=== PATIENT | female | born 1990 | race Caucasian/White ===

== ENCOUNTER 2017-10-07 19:10 | Emergency (ER) | payer MEDICAID, OTHER ==
[~2017-10-07] VITALS: Ht 165.1 cm; Wt 57.4 kg
[2017-10-07 19:38] VITALS: BP 121/85
[2017-10-07 21:19] LABS: BASOPHILS # (AUTO) 0.1 /CMM (0.0-0.2); BASOPHILS % (AUTO) 0.8 % (0.0-2.0); EOSINOPHILS % (AUTO) 0.8 % (0.0-6.0); HEMATOCRIT 37 % (33-45); HEMOGLOBIN 12.7 g/dL (11.5-14.8); LYMPHOCYTES # (AUTO) 2.8 /CMM (0.8-4.8); LYMPHOCYTES % (AUTO) 27.9 % (20.0-44.0); MEAN CORPUSCULAR HGB CONC 35 g/dl (31.0-36.0); MEAN CORPUSCULAR VOLUME 81 fL (82-100); MONOCYTES # (AUTO) 0.4 /CMM (0.1-1.30); MONOCYTES % (AUTO) 4.5 % (2.0-12.0); NEUTROPHILS # (AUTO) 6.5 /CMM (1.8-8.9); PLATELET COUNT (AUTO) 283 /CMM (150-450); RDW COEFFICIENT OF VARIATION 11.6 (11.5-15.0); RED BLOOD CELL COUNT(AUTO) 4.52 MIL/uL (4.0-5.2); WHITE BLOOD COUNT (AUTO) 9.9 K/uL (4.3-11.0)
[2017-10-07 21:31] LABS: CALCIUM, SERUM 8.8 mg/dL (8.5-10.1); CREATININE 0.9 mg/dL (0.6-1.3); POTASSIUM 3.6 mmol/L (3.5-5.1)
[2017-10-07 21:31] LABS: APPEARANCE,URINE Clear (CLEAR); BILIRUBIN,URINE Negative (NEGATIVE); BLOOD, URINE Negative Ery/uL (NEGATIVE); COLOR,URINE Yellow (YELLOW); KETONES,URINE Negative (NEGATIVE); LEUKOCYTE ESTERASE ,URINE Negative (NEGATIVE); NITRITE, URINE Negative (NEGATIVE); PH,URINE 7.5 (5.0-8.0); PROTEIN,URINE Negative (NEGATIVE); UGLUCOSE Negative (NEGATIVE)
[2017-10-07 21:46] LABS: ALBUMIN 3.5 g/dL (3.4-5.0); BILIRUBIN,DIRECT 0.1 mg/dL (0.0-0.2); BILIRUBIN,TOTAL 0.3 mg/dL (0.2-1.0); TOTAL PROTEIN, SERUM 7.5 g/dL (6.4-8.2)
== END 2017-10-07 22:44 | disposition home or self-care (01) ==
LOC: ER 19:12
DX: K59.00 Constipation, unspecified (principal); Z98.51 Tubal ligation status; Z98.890 Other specified postprocedural states
CPT/HCPCS: 36415; 80048; 80076; 81001; 83690; 84703; 85025; 99284; A4606; Z7610; 81000-TC

== ENCOUNTER 2019-03-23 19:43 | Emergency (ER) | payer MEDICAID ==
[~2019-03-23] VITALS: Ht 167.6 cm; Wt 56.3 kg
--- NOTE | 2019-03-23 19:58 | NUR ---
BIB EMS C/O ABDMONIAL, LOW BACK PAIN WITH FREQUENCY PAIN AND BURNING UPON URINATION X3 DAYS. TO ER BED 12, HOOKED TO MONITOR, CHANGED TO [facility], AWAITING MD PHILIP.
--- NOTE | 2019-03-23 20:10 | NUR ---
MATIAS HINSON AT BEDSIDE
[2019-03-23] MEDS ORDERED: KETOROLAC TROMETHAMINE INJ 30 MG/ML VIAL ONE (20:29)
[2019-03-23 20:30] LABS: BILIRUBIN,URINE Negative (NEGATIVE); BLOOD, URINE Moderate Ery/uL (NEGATIVE); COLOR,URINE Yellow (YELLOW); KETONES,URINE Negative (NEGATIVE); LEUKOCYTE ESTERASE ,URINE Negative (NEGATIVE); NITRITE, URINE Negative (NEGATIVE); PH,URINE 6.5 (5.0-8.0); PROTEIN,URINE Negative (NEGATIVE); UGLUCOSE Negative (NEGATIVE); UROBILINOGEN,URINE 0.2 EU/dL (0.2)
[2019-03-23] MEDS ORDERED: KETOROLAC TROMETHAMINE INJ 30 MG/ML VIAL IV ONE (20:30)
[2019-03-23] MEDS ORDERED: IV NS 0.9% 1,000 ML BAG IV ONE (20:30)
[2019-03-23 20:31] LABS: APPEARANCE,URINE HAZY (CLEAR)
[2019-03-23 20:39] LABS: BACTERIA,URINE Many /HPF (None Seen); SQUAMOUS EPITHELIAL CELL,UR Few /HPF (None Seen)
[2019-03-23] MEDS ORDERED: CEPHALEXIN MONOHYDRATE 500 MG CAPSULE PO ONE ×2 (22:00→22:21)
[2019-03-23] MEDS ORDERED: PHENAZOPYRIDINE HCL 200 MG TABLET PO ONE (22:00)
[2019-03-23] MEDS ORDERED: PHENAZOPYRIDINE HCL 200 MG TABLET ONE (22:21)
--- NOTE | 2019-03-23 22:28 | NUR ---
IV removed. Catheter intact and site benign. Pressure and 4x4 applied to site. No bleeding noted.Patient discharged to home in stable condition. Written and verbal after care instructions given. Patient verbalizes understanding of instruction.
[2019-03-23 22:32] VITALS: BP 132/71
--- NOTE | 2019-03-23 22:33 | NUR ---
PATIENT PROVIDED W TAP CARD REQUESTED, PER PATIENT "I HAVE NO MONEY TO GO HOME"
== END 2019-03-23 22:33 | disposition home or self-care (01) ==
LOC: ER 19:44
DX: N39.0 Urinary tract infection, site not specified (principal); N83.209 Unspecified ovarian cyst, unspecified side; K52.9 Noninfective gastroenteritis and colitis, unspecified; K59.00 Constipation, unspecified; K57.90 Diverticulosis of intestine, part unspecified, without perforation or abscess without bleeding; F42.8 Other obsessive-compulsive disorder; Z98.890 Other specified postprocedural states; Z60.2 Problems related to living alone
CPT/HCPCS: 71045; 74176; 81001; 84703; 87086; 96361; 96374; 99284; J1885; J7030; 81000-TC

== ENCOUNTER 2019-03-31 17:29 | Emergency (ER) | payer MEDICAID ==
[~2019-03-31] VITALS: Ht 165.1 cm; Wt 55.8 kg
[2019-03-31 19:09] VITALS: BP 115/65
--- NOTE | 2019-03-31 19:09 | NUR ---
Patient discharged to home in stable condition. Written and verbal after care instructions given. Patient verbalizes understanding of instruction.
== END 2019-03-31 19:09 | disposition home or self-care (01) ==
LOC: ER 17:29
DX: L02.31 Cutaneous abscess of buttock (principal); F42.8 Other obsessive-compulsive disorder; Z98.890 Other specified postprocedural states; Z60.2 Problems related to living alone

== ENCOUNTER 2020-06-01 11:49 | Emergency (ER) | payer MEDICAID ==
[~2020-06-01] VITALS: Ht 160 cm; Wt 65.8 kg
[2020-06-01 12:28] LABS: BILIRUBIN,URINE NEGATIVE (NEGATIVE); BLOOD, URINE NEGATIVE Ery/uL (NEGATIVE); COLOR,URINE YELLOW (YELLOW); LEUKOCYTE ESTERASE ,URINE NEGATIVE (NEGATIVE); NITRITE, URINE NEGATIVE (NEGATIVE); PROTEIN,URINE NEGATIVE (NEGATIVE); UGLUCOSE NEGATIVE (NEGATIVE); UROBILINOGEN,URINE 0.2 EU/dL (0.2)
--- NOTE | 2020-06-01 13:00 | NUR ---
pt bib self c/o dysuria, burning sensation, and noted bumps around vaginal area x 3 mos. vs checked. evaluated by dr. caicedo be bedside with primary rn
--- NOTE | 2020-06-01 13:05 | NUR ---
urine collected sent to lab
[2020-06-01] MEDS ORDERED: AZITHROMYCIN 250 MG TABLET PO ONE (14:30)
[2020-06-01] MEDS ORDERED: CEFTRIAXONE 500 MG VIAL IM ONE (14:30)
[2020-06-01] MEDS ORDERED: CEFTRIAXONE 500 MG VIAL ONE (14:33)
[2020-06-01] MEDS ORDERED: LIDOCAINE /MPF 1% VIAL 5 ML VIAL ONE (14:33)
[2020-06-01] MEDS ORDERED: AZITHROMYCIN 250 MG TABLET ONE (14:34)
[2020-06-01 14:47] VITALS: BP 118/90
--- NOTE | 2020-06-01 14:48 | NUR ---
Patient discharged to home in stable condition. Written and verbal after care instructions given. Patient verbalizes understanding of instruction.
== END 2020-06-01 14:48 | disposition home or self-care (01) ==
LOC: ER 11:54
DX: L73.9 Follicular disorder, unspecified (principal); F42.9 Obsessive-compulsive disorder, unspecified; Z98.890 Other specified postprocedural states; Z60.2 Problems related to living alone
CPT/HCPCS: 81003; 96372; 99283; J0696; J3490

== ENCOUNTER 2021-01-25 14:29 | Emergency (ER) | payer MEDICAID ==
[~2021-01-25] VITALS: Ht 162.6 cm; Wt 63.5 kg
--- NOTE | 2021-01-25 14:52 | NUR ---
The patient [id number], from home, c/o vaginal bleeding on and off x 1 year. Noted perineal area redness, moist with foul odor. Patient c/o itching in perineal area. Will continue to monitor the patient.
[2021-01-25] MEDS ORDERED: FLUCONAZOLE (100 MG) 100 MG TABLET ONE (14:55)
[2021-01-25] MEDS ORDERED: HYDROCODONE/APAP 5/325MG TABLET ONE (14:55)
[2021-01-25] MEDS ORDERED: CEPHALEXIN MONOHYDRATE 500 MG CAPSULE PO ONE ×2 (14:55→15:00)
[2021-01-25] MEDS ORDERED: CEPH500C2 PO (14:56)
[2021-01-25] MEDS ORDERED: HYDR-4303 PO (14:56)
[2021-01-25] MEDS ORDERED: FLUC200T PO (14:56)
[2021-01-25] MEDS ORDERED: HYDROCODONE/APAP 5/325MG TABLET PO ONE (15:00)
[2021-01-25] MEDS ORDERED: FLUCONAZOLE (100 MG) 100 MG TABLET PO ONE (15:00)
[2021-01-25 15:18] VITALS: BP 109/66
--- NOTE | 2021-01-25 15:18 | NUR ---
Patient discharged to home in stable condition. Written and verbal after care instructions given. Patient verbalizes understanding of instruction.
== END 2021-01-25 15:18 | disposition home or self-care (01) ==
LOC: ER 14:32
DX: L30.9 Dermatitis, unspecified (principal); B37.3 Candidiasis of vulva and vagina; N76.2 Acute vulvitis; F42.9 Obsessive-compulsive disorder, unspecified; Z98.890 Other specified postprocedural states; Z60.2 Problems related to living alone

== ENCOUNTER 2021-04-19 15:19 | Emergency (ER) | payer MEDICAID ==
[~2021-04-19] VITALS: Ht 165.1 cm; Wt 72.6 kg
[~2021-04-19 15:19] MED LIST: CEPH500C2 PO; FLUC200T PO; HYDR-4303 PO
--- NOTE | 2021-04-19 15:33 | NUR ---
LT FLANK X 2-3 DAYS. DENIES CP, SOB, DIZZINESS, N/V AT THIS TIME. AWAITING EVAL BY ERMD. WILL CONT TO MONITOR.
--- NOTE | 2021-04-19 15:41 | NUR ---
MORAIMA WRIGHT AT FOR CEDRICK.
[2021-04-19] MEDS ORDERED: KETOROLAC TROMETHAMINE 15 MG/ML VIAL ONE (15:46)
[2021-04-19 15:59] LABS: BASOPHILS % (AUTO) 0.4 % (0.0-2.0); EOSINOPHILS % (AUTO) 0.6 % (0.0-6.0); HEMATOCRIT 42 % (33-45); HEMOGLOBIN 14.1 g/dL (11.5-14.8); LYMPHOCYTES # (AUTO) 2.3 K/uL (0.8-4.8); LYMPHOCYTES % (AUTO) 20.5 % (20.0-44.0); MEAN CORPUSCULAR HGB CONC 34 g/dl (31.0-36.0); MEAN CORPUSCULAR VOLUME 83 fL (82-100); MONOCYTES # (AUTO) 0.5 K/uL (0.1-1.30); NEUTROPHILS # (AUTO) 8.1 K/uL (1.8-8.9); NEUTROPHILS % (AUTO) 73.5 % (43.0-81.0); PLATELET COUNT (AUTO) 353 K/uL (150-450); RED BLOOD CELL COUNT(AUTO) 5.06 MIL/uL (4.0-5.2)
[2021-04-19 16:00] LABS: BILIRUBIN,URINE NEGATIVE (NEGATIVE); COLOR,URINE YELLOW (YELLOW); LEUKOCYTE ESTERASE ,URINE TRACE (NEGATIVE); NITRITE, URINE NEGATIVE (NEGATIVE); PH,URINE 6.5 (5.0-8.0); PROTEIN,URINE NEGATIVE (NEGATIVE); UGLUCOSE NEGATIVE (NEGATIVE); UROBILINOGEN,URINE 0.2 EU/dL (0.2)
[2021-04-19] MEDS ORDERED: KETOROLAC TROMETHAMINE INJ 30 MG/ML VIAL IV ONE (16:00)
[2021-04-19] MEDS ORDERED: IV NS 0.9% 1,000 ML BAG IV ONE (16:00)
[2021-04-19 16:09] LABS: CALCIUM, SERUM 8.9 mg/dL (8.5-10.1); CREATININE 0.7 mg/dL (0.6-1.3); POTASSIUM 3.8 mmol/L (3.5-5.1)
[2021-04-19 16:14] LABS: BACTERIA,URINE Rare /HPF (None Seen); RBC,URINE 0-2 /HPF (0-2); SQUAMOUS EPITHELIAL CELL,UR Moderate /HPF (None Seen); WBC,URINE 0-2 /HPF (0-3)
[2021-04-19] MEDS ORDERED: CIPR-262 PO (16:48)
[2021-04-19 17:06] VITALS: BP 127/76
--- NOTE | 2021-04-19 17:06 | NUR ---
Patient discharged to home in stable condition. Written and verbal after care instructions given. Patient verbalizes understanding of instruction. IV removed. Catheter intact and site benign. Pressure and 4x4 applied to site. No bleeding noted.
== END 2021-04-19 17:07 | disposition home or self-care (01) ==
LOC: ER 15:26
DX: N12 Tubulo-interstitial nephritis, not specified as acute or chronic (principal); Z98.51 Tubal ligation status; Z98.890 Other specified postprocedural states; Z60.2 Problems related to living alone; Z79.899 Other long term (current) drug therapy
CPT/HCPCS: 36415; 80048; 81001; 83690; 84703; 85025; 96361; 96374; 99283; J1885; J7030

== ENCOUNTER 2022-05-18 20:41 | Emergency (ER) | payer MEDICAID ==
[~2022-05-18] VITALS: Ht 162.6 cm; Wt 63.5 kg
[~2022-05-18 20:41] MED LIST changes: +CIPR-262 PO
--- NOTE | 2022-05-18 20:45 | NUR ---
TO ER BED 2. [id number] FROM HOME C/O LOWER BACK AND ABD PAIN X 2 DAYS W/ BURNING AND BLEEDING WHEN URINATING. PT IS ALERT AND ORIENTED. RR EVEN AND NON LABORED. CONNECTED TO MONITOR. AWAITING MD PHILIP
--- NOTE | 2022-05-18 20:56 | NUR ---
URINE SAMPLE COLLECTED
[2022-05-18 21:29] LABS: BILIRUBIN,URINE NEGATIVE (NEGATIVE); COLOR,URINE YELLOW (YELLOW); LEUKOCYTE ESTERASE ,URINE NEGATIVE (NEGATIVE); NITRITE, URINE NEGATIVE (NEGATIVE); PROTEIN,URINE NEGATIVE (NEGATIVE); UGLUCOSE NEGATIVE (NEGATIVE); UROBILINOGEN,URINE 0.2 EU/dL (0.2)
[2022-05-18 21:37] LABS: BACTERIA,URINE Rare /HPF (None Seen); RBC,URINE 0-2 /HPF (0-2); SQUAMOUS EPITHELIAL CELL,UR Few /HPF (None Seen); WBC,URINE 0-2 /HPF (0-3)
--- NOTE | 2022-05-18 22:28 | NUR ---
XRAY AT BEDSIDE
[2022-05-18] MEDS ORDERED: ACYC-108 PO (23:07)
[2022-05-18] MEDS ORDERED: CEPH500T PO (23:07)
[2022-05-18] MEDS ORDERED: SULF1TAB48 PO (23:07)
--- NOTE | 2022-05-18 23:16 | NUR ---
Patient discharged to home in stable condition. Written and verbal after care instructions given. Patient verbalizes understanding of instruction.
[2022-05-18 23:28] VITALS: BP 128/88
== END 2022-05-18 23:28 | disposition home or self-care (01) ==
LOC: ER 20:44
DX: B00.9 Herpesviral infection, unspecified (principal); L02.31 Cutaneous abscess of buttock; M54.50 Low back pain, unspecified; Z60.2 Problems related to living alone; Z79.899 Other long term (current) drug therapy
CPT/HCPCS: 72110-TC; 81001; 84703-TC

== ENCOUNTER 2023-03-10 22:28 | Emergency (ER) | payer MEDICAID ==
[~2023-03-10] VITALS: Ht 162.6 cm; Wt 64.4 kg
[~2023-03-10 22:28] MED LIST changes: +ACYC-108 PO; +CEPH500T PO; +SULF1TAB48 PO
[2023-03-10 23:16] LABS: PREGNANCY TEST URINE QUAL NEGATIVE (NEGATIVE)
[2023-03-10 23:19] LABS: APPEARANCE,URINE CLEAR (CLEAR); BILIRUBIN,URINE NEGATIVE (NEGATIVE); BLOOD, URINE NEGATIVE Ery/uL (NEGATIVE); COLOR,URINE YELLOW (YELLOW); KETONES,URINE NEGATIVE (NEGATIVE); LEUKOCYTE ESTERASE ,URINE NEGATIVE (NEGATIVE); NITRITE, URINE NEGATIVE (NEGATIVE); PROTEIN,URINE NEGATIVE (NEGATIVE); UGLUCOSE NEGATIVE (NEGATIVE); UROBILINOGEN,URINE 0.2 EU/dL (0.2)
[2023-03-10] MEDS ORDERED: ACETAMINOPHEN 325 MG TABLET PO ONE (23:30)
[2023-03-10] MEDS ORDERED: ACETAMINOPHEN ES 500 MG TABLET ONE (23:31)
[2023-03-11] MEDS ORDERED: CEPH500T PO ×2 (00:13→00:31)
[2023-03-11] MEDS ORDERED: ACYC5CRE2 TP ×2 (00:13→00:31)
[2023-03-11] MEDS ORDERED: DOCU100C36 PO ×2 (00:13→00:31)
[2023-03-11] MEDS ORDERED: ACYC-108 PO ×2 (00:13→00:31)
[2023-03-11 00:35] VITALS: BP 113/81; TEMP 98.1; O2SAT 98
== END 2023-03-11 00:35 | disposition home or self-care (01) ==
LOC: ER 22:29
DX: A60.00 Herpesviral infection of urogenital system, unspecified (principal); L73.2 Hidradenitis suppurativa; K59.00 Constipation, unspecified; Z79.899 Other long term (current) drug therapy; Z60.2 Problems related to living alone
CPT/HCPCS: 84703-TC

== ENCOUNTER 2023-04-14 19:53 | Emergency (ER) | payer MEDICAID ==
[~2023-04-14] VITALS: Ht 162.6 cm; Wt 63.5 kg
[~2023-04-14 19:53] MED LIST changes: +ACYC5CRE2 TP; +DOCU100C36 PO
[2023-04-14 20:03] VITALS: BP 120/83; TEMP 98.5; O2SAT 98
== END 2023-04-14 20:53 | disposition home or self-care (01) ==
LOC: ER 19:59
DX: L02.01 Cutaneous abscess of face (principal); J02.9 Acute pharyngitis, unspecified; J34.0 Abscess, furuncle and carbuncle of nose; Z60.2 Problems related to living alone; Z20.822 Contact with and (suspected) exposure to COVID-19
CPT/HCPCS: 99283; 87426; C9803

== ENCOUNTER 2024-02-29 15:37 | Emergency (ER) | payer MEDICAID ==
[~2024-02-29] VITALS: Ht 162.6 cm; Wt 64.9 kg
[2024-02-29 16:26] LABS: BASOPHILS # (AUTO) 0.1 K/uL (0.0-0.2); BASOPHILS % (AUTO) 0.8 % (0.0-2.0); EOSINOPHILS # (AUTO) 0.1 K/uL (0.0-0.7); EOSINOPHILS % (AUTO) 1.3 % (0.0-6.0); HEMATOCRIT 37 % (33-45); HEMOGLOBIN 12.4 g/dL (11.5-14.8); LYMPHOCYTES % (AUTO) 21.4 % (20.0-44.0); MEAN CORPUSCULAR HEMOGLOBIN 26 PG (26.0-33.0); MEAN CORPUSCULAR HGB CONC 33 g/dl (31.0-36.0); MEAN CORPUSCULAR VOLUME 78 fL (82-100); MONOCYTES # (AUTO) 0.5 K/uL (0.1-1.30); MONOCYTES % (AUTO) 5.1 % (2.0-12.0); NEUTROPHILS # (AUTO) 6.8 K/uL (1.8-8.9); NEUTROPHILS % (AUTO) 71.4 % (43.0-81.0); PLATELET COUNT (AUTO) 372 K/uL (150-450); RED BLOOD CELL COUNT(AUTO) 4.76 MIL/uL (4.0-5.2); RED CELL DISTRIBUTION WIDTH 13.8 % (11.5-15.0); WHITE BLOOD COUNT (AUTO) 9.5 K/uL (4.3-11.0)
[2024-02-29 17:24] LABS: CALCIUM, SERUM 9.4 mg/dL (8.5-10.1); CREATININE 0.9 mg/dL (0.6-1.3); POTASSIUM 3.6 mmol/L (3.5-5.1)
[2024-02-29 17:25] LABS: APPEARANCE,URINE Clear (CLEAR); BILIRUBIN,URINE Negative (NEGATIVE); BLOOD, URINE Negative Ery/uL (NEGATIVE); COLOR,URINE YELLOW (YELLOW); KETONES,URINE Negative (NEGATIVE); LEUKOCYTE ESTERASE ,URINE Negative (NEGATIVE); NITRITE, URINE Negative (NEGATIVE); PROTEIN,URINE Negative (NEGATIVE); UGLUCOSE Negative (NEGATIVE)
[2024-02-29 17:35] LABS: PREGNANCY TEST URINE QUAL NEGATIVE (NEGATIVE)
[2024-02-29 17:42] LABS: ALBUMIN 3.6 g/dL (3.4-5.0); BILIRUBIN,DIRECT 0.1 mg/dL (0.0-0.2); BILIRUBIN,TOTAL 0.4 mg/dL (0.2-1.0); TOTAL PROTEIN, SERUM 8.1 g/dL (6.4-8.2)
[2024-02-29 18:23] LABS: ADD URINE CULTURE YES; BACTERIA,URINE Moderate /HPF (None Seen); RBC,URINE 0-2 /HPF (0-2); SQUAMOUS EPITHELIAL CELL,UR Few /HPF (None Seen); YEAST,URINE Moderate /HPF (None Seen)
[2024-02-29] MEDS ORDERED: IBUP-1953 PO (20:31)
[2024-02-29 20:55] VITALS: BP 122/79; TEMP 98.6; O2SAT 99
== END 2024-02-29 20:55 | disposition home or self-care (01) ==
LOC: ER 15:57
DX: N83.292 Other ovarian cyst, left side (principal); R10.32 Left lower quadrant pain; R10.31 Right lower quadrant pain; Z87.448 Personal history of other diseases of urinary system; Z87.42 Personal history of other diseases of the female genital tract; Z60.2 Problems related to living alone
CPT/HCPCS: 36415; 80048-TC; 80076-TC; 81001; 84703-TC; 85025-TC; 87086-TC

== ENCOUNTER 2025-06-03 23:13 | Emergency (ER) | payer MEDICAID ==
[~2025-06-03] VITALS: Ht 162.6 cm; Wt 75.7 kg
[~2025-06-03 23:13] MED LIST changes: +IBUP-1953 PO
[2025-06-03 23:59] LABS: PLATELET COUNT (AUTO) 373 K/uL (150-450); RED BLOOD CELL COUNT(AUTO) 4.85 MIL/uL (4.0-5.2); RED CELL DISTRIBUTION WIDTH 13.8 % (11.5-15.0); WHITE BLOOD COUNT (AUTO) 11.2 K/uL (4.3-11.0)
[2025-06-04 00:11] LABS: ASPARTATE AMINOTRANSFERASE 13 U/L (15-37); CALCIUM, SERUM 8.8 mg/dL (8.5-10.1); CREATININE 1.0 mg/dL (0.6-1.3); INR 0.98 (0.91-1.10); SODIUM SERUM 142 mmol/L (136-145); TOTAL PROTEIN, SERUM 8.3 g/dL (6.4-8.2); UREA NITROGEN, BLOOD 8 mg/dL (7-18)
[2025-06-04 00:56] VITALS: BP 120/78; TEMP 98.2; O2SAT 99
== END 2025-06-04 00:57 | disposition home or self-care (01) ==
LOC: ER 23:17
DX: R07.89 Other chest pain (principal); Z79.624 Long term (current) use of inhibitors of nucleotide synthesis
CPT/HCPCS: 36415; 71045-TC; 80048-TC; 80076-TC; 84484-TC; 85025-TC; 85378-TC; 85730-TC